=== PATIENT | male | born 1970 | race Caucasian/White ===

== ENCOUNTER 2018-12-04 16:17 | Emergency (ER) | payer MEDICAID ==
[~2018-12-04] VITALS: Ht 170.2 cm; Wt 77.1 kg
[2018-12-04 16:25] VITALS: BP 148/83
--- NOTE | 2018-12-04 16:29 | NUR ---
PT AMB TO BED 4 WITH STEADY GAIT
--- NOTE | 2018-12-04 16:30 | NUR ---
BIB C/O RIGHT GROIN PAIN & SWELLING X 3 DAYS. DENIES MED HX. PATIENT STATES PAIN OF 10/04 AT THIS TIME; PATIENT POSITIONED FOR COMFORT; HOB ELEVATED; BEDRAILS UP X1; BED DOWN. KRIS BAEZ MADE AWARE OF PT STATUS. Addendum: 12/04/18 at 1648 by [email or web address] PT C/O NAUSEA.
[2018-12-04 17:18] VITALS: BP 148/83
== END 2018-12-04 17:18 | disposition home or self-care (01) ==
LOC: MED 16:17
DX: K40.90 Unilateral inguinal hernia, without obstruction or gangrene, not specified as recurrent (principal)
CPT/HCPCS: 81002; 99282